=== PATIENT | male | born 1955 | race Caucasian/White ===

== ENCOUNTER 2018-03-28 07:15 | Outpatient (RCR) | payer OTHER, SELFPAY ==
--- NOTE | 2017-10-21 09:07 | MASS.EVAL ---
Massage Therapy Evaluation: Initial Evaluation Date: 10/11/2017 SUBJECTIVE: Nishant is a 62 year old male who is retired. He was referred to the [facility] facility for a massotherapy evaluation by Dr. Guille Padilla with the diagnosis of low back pain. Nishant presents today with the symptoms of tension and pain in his neck, upper back and lower back. He reports having a medical history spinal problems. He reports having minimal limitations during his daily activities currently. OBJECTIVE: Upon observation Nishant has poor posture with his head forward and shoulders forward from the neutral position in sitting and standing. After examination and palpation I found Nishant to have very high muscle tension in his scalenes, trapezius, rhomboids, and sub occipitals with restrictions in cervical ROM. His thoracic and lumbar paraspinals were tender with muscle knots. His hips and lumbar region were also very tight with tender points. The first treatment consisted of a one hour massage to his full body with myofascial release, muscle stripping and compression techniques. ASSESSMENT: I feel that Nishant is a good candidate for massotherapy at this time. He had a favorable response to the first treatment with reduction in his muscle aches, pain and tension. He also had improvement in his cervical and lumbar range of motion with improved flexibility in his neck and back. PLAN: The plan of care was reviewed with the patient. The patient is to be seen on as needed basis for a total of ten sessions with the recommendation of once every four weeks for a one hour treatment.
--- NOTE | 2018-03-28 12:42 | MASS.DISCH ---
Massage Therapy Discharge Summary: Discharge Date: 03/28/2018 Nishant was seen for a massotherapy evaluation on 10/11/2017 with the diagnosis of low back pain. He was treated with ten sessions of massage consisting of deep pressure soft tissue techniques, myofascial release and trigger point compression to his neck, shoulders, thoracic, lower back and hips. Nishant responded well to the therapy by reporting decreased tension and pain throughout his neck, lower back and hips. His goals for therapy were met throughout the treatment sessions. At this time this patient is being discharged from our care at [facility] facility.
== END 2018-03-28 19:00 | disposition home or self-care (01) ==
LOC: MASS 07:15
PROVIDERS: Family Provider Student in an Organized Health Care Education/Training Program; PCP Student in an Organized Health Care Education/Training Program; Visit Provider Student in an Organized Health Care Education/Training Program
DX: M54.5 Low back pain (principal)
CPT/HCPCS: 97124

== ENCOUNTER → 2018-09-23 11:33 | Outpatient (CLI) | payer OTHER, SELFPAY ==
[2018-09-23 15:43] LABS: Absolute Lymphocyte Count 1.68 X10^3/ul (0.83-4.51); Absolute Neutrophil Count 3.6 X10^3/uL (2.0-7.7); Basophil# 0.02 X10^3/uL; Basophil% 0.3 % (0-1); Eosinophils% 1.6 % (0-5); Hematocrit 53.1 % (40-54); Hemoglobin 17.6 g/dl (13.0-16.5); Lymphocyte # 1.68 X10^3/ul (4.0); Lymphocyte % 27.6 % (19-41); Mean Corp Hgb Conc 33.1 g/gl (32-36); Mean Corpuscular Volume 93.7 fL (80-94); Mean Platelet Vol. 9.6 fl (6.2-12.0); Monocyte% 11.5 % (0-10); Neutrophil # 3.58 X10^3/uL (2.7-7.7); Neutrophil % 58.8 % (47-70); Platelet Count 242 K/mm3 (150-450); RBC Distribution Width SD 47.6 fl (35.1-43.9); Red Blood Count 5.67 M/mm3 (4.6-6.2); White Blood Count 6.1 K/mm3 (4.4-11.0)
[2018-09-23 15:49] LABS: POSITIVE COUNT NO; POSITIVE DIFFERENTIAL NO; POSITIVE MORPHOLOGY NO
[2018-09-23 16:05] LABS: ALB/GLOB Ratio 1.4 RATIO (0.9-2.4); AST(SGOT) 25 U/L (15-37); Alanine Aminotransfer ALT/SGPT 43 U/L (16-61); Albumin, Serum 4.3 g/dL (3.2-5.0); Alkaline Phosphatase 70 U/L (45-117); Anion Gap 9 (5-15); BUN 15 mg/dL (7-18); BUN/Creat Ratio 13.6 RATIO (10-20); Calcium,Total 9.2 mg/dL (8.5-10.1); Chloride 105 mmol/L (98-107); EST Glomerular Filtration Rate 72 mL/min (>60); Est Glom Filt Rate - Afr Amer 87 mL/min (>60); Globulin 3.1 g/dL (2.2-4.2); Glucose 90 mg/dL (74-106); PSA,Total- Diagnostic < 0.01 ng/mL (0.0-4.0); Potassium 4.1 mmol/L (3.5-5.1); Protein, Total 7.4 g/dL (6.4-8.2); Sodium Level 142 mmol/L (136-145); Thyroid Stim Hormone (TSH) 1.82 uIU/mL (0.358-3.74)
== END ==
PROVIDERS: Family Provider Family Medicine; PCP Family Medicine; Visit Provider Family Medicine
DX: R73.01 Impaired fasting glucose (principal); R03.0 Elevated blood-pressure reading, without diagnosis of hypertension
CPT/HCPCS: 36415; 80053; 84153; 84443; 85025

== ENCOUNTER → 2018-11-16 12:16 | Outpatient (CLI) | payer OTHER, SELFPAY ==
--- NOTE | 2018-11-16 07:30 | LES_PTH ---
PATIENT: TELLY HARO LOC: [facility] U#:[id number] AGE/SX: 70/M ROOM: RE11/16/[address]: Dr. Damon Hahn MD : 1955 BED: DIS: SPEC #: [id number] RECD: 11/16/18 12:03 STATUS: RANDALL GEOVANNY #: [id number] STEPHEN: 11/16/18 07:[address]: Damon Hahn DEPT: SURGICAL PATHOLOGY RECD BY: Jayme Delgado ENTERED: 11/16/18 13:23 SP TYPE: Lesion OTHR DR: Dr. Narinder Grider MD Tissues: Skin of head, NOS Procedures: Surgery Specimen Level IV HEADER OPERATION: Excision left baptist lesion PRE-OP DIAGNOSIS: Uncertain neoplasm face TISSUE SUBMITTED: Left baptist lesion MICROSCOPIC DIAGNOSIS Skin lesion of left baptist, biopsy: Consistent with sebaceous hyperplasia. Actinic change and solar elastosis. Focal parakeratosis. No evidence of malignancy. AM:rg 2/14/19 COMMENT Case has been reviewed in consultation with Dr. Lopez who concurs with the above diagnosis. IDC:SJ MICROSCOPIC DESCRIPTION Slides are reviewed. GROSS DESCRIPTION Received in fixative is one container labeled with the patient's name and designated left baptist. The specimen consists of an ellipse of light costa excised skin measuring 1.2 x 0.6 x 0.2 cm. The specimen is inked, serially sectioned and totally submitted in one cassette. / AM:federico 11/16/18 TC:5 CPT: 41679
== END ==
PROVIDERS: Family Provider Family Medicine; PCP Family Medicine; Referring Provider Surgery; Visit Provider Surgery
DX: L57.8 Other skin changes due to chronic exposure to nonionizing radiation (principal); W89.9XXA Exposure to unspecified man-made visible and ultraviolet light, initial encounter; Y93.9 Activity, unspecified; Y92.9 Unspecified place or not applicable; Y99.9 Unspecified external cause status; R23.4 Changes in skin texture
CPT/HCPCS: 88305

== ENCOUNTER → 2019-03-26 15:25 | Outpatient (CLI) | payer OTHER, SELFPAY ==
--- NOTE | 2019-03-26 15:33 | RAD_ITS ---
STUDY: X-RAY - RIGHT FOOT CLINICAL: Male, 63 years old. Trauma TECHNIQUE: 3 view(s) of the foot. COMPARISON: None. FINDINGS: There is a tiny plantar aspect calcaneal spur. Normal visualized subtalar, talonavicular, calcaneocuboid, tarsal and tarsometatarsal articulations. There is a slightly displaced oblique fracture of the base of the fourth metatarsal, and possibly also the base of the third metatarsal. Normal metatarsophalangeal joint of the great toe. Normal tibial and fibular sesamoid bones. Normal interphalangeal joint of the great toe. Normal phalanges of the great toe. Normal second through fifth metatarsophalangeal joints. Normal interphalangeal joints and phalanges of the lesser toes. There is soft tissue swelling of the dorsum of the distal foot. RAD/Foot min 3 Views IMPRESSION: Slightly displaced oblique fracture the base of the fourth metatarsal. There is also a possible nondisplaced fracture of the base of the third metatarsal. Tiny plantar aspect calcaneal spur. Electronically Signed: Jignesh Gibson MD at 19:54 EDT , Service support ,
== END ==
PROVIDERS: Family Provider Family Medicine; PCP Family Medicine; Referring Provider Family Medicine; Visit Provider Family Medicine
DX: M79.671 Pain in right foot (principal)
CPT/HCPCS: 73630

== ENCOUNTER → 2019-03-28 15:19 | Outpatient (CLI) | payer OTHER, SELFPAY ==
--- NOTE | 2019-03-28 15:21 | CT_ITS ---
STUDY: CT RIGHT FOOT REASON FOR EXAM: Male, 63 years old. Fracture status post density accident RADIATION DOSAGE (If Supplied By Facility): CTDIvol = ( 15.35 ) mGy, DLP = ( 369.11 ) mGycm TECHNIQUE: Thin section transaxial imaging of the foot was obtained, with sagittal and coronal reconstructed images. Individualized dose optimization techniques were used for this CT. COMPARISON: None. FINDINGS: Normal talus, calcaneus,. Normal visualized tibiotalar, subtalar, talonavicular, calcaneocuboid, tarsal and tarsometatarsal articulations. There is a comminuted fracture at the base of the fourth metatarsal. There is a fracture fragment at the base of the third metatarsal on the medial side. There is a focus of fracture fragments on the medial side of the medial cuneiform. There is a small focus of fracture fragments at the anterior aspect of the cuboid with a visualized fracture of the cuboid images were 14 of the sagittal views. There is also a subtle fracture or avulsion injury in the superior side of the navicular bone image #28 of the sagittal views. There is an os trigonum. The bones are overall osteopenic likely from disuse. The visualized calcaneus is intact. Normal metatarsophalangeal joint of the great toe. Normal tibial and fibular sesamoid bones. Normal interphalangeal joint of the great toe. Normal phalanges of the great toe. Normal second through fifth metatarsophalangeal joints. Normal interphalangeal joints and phalanges of the lesser toes. There is visualized soft tissue edema. CT/Coronals Sag Multi Obl 3-D Rec IMPRESSION: There is a comminuted fracture at the base of the fourth metatarsal. There is a fracture fragment at the base of the third metatarsal on the medial side. There is a focus of fracture fragments on the medial side of the medial cuneiform. There is a small focus of fracture fragments at the anterior aspect of the cuboid with a visualized fracture of the cuboid images were 14 of the sagittal views. There is also a subtle fracture or avulsion injury in the superior side of the navicular bone image #28 of the sagittal views. An MRI may be helpful in further establishing any subtle areas of bone edema or soft tissue injury. Electronically Signed: Amber Jett MD at 16:25 EDT Tel , Service support ,
--- NOTE | 2019-03-28 15:21 | CT_ITS ---
STUDY: CT RIGHT FOOT REASON FOR EXAM: Male, 63 years old. Fracture status post density accident RADIATION DOSAGE (If Supplied By Facility): CTDIvol = ( 15.35 ) mGy, DLP = ( 369.11 ) mGycm TECHNIQUE: Thin section transaxial imaging of the foot was obtained, with sagittal and coronal reconstructed images. Individualized dose optimization techniques were used for this CT. COMPARISON: None. FINDINGS: Normal talus, calcaneus,. Normal visualized tibiotalar, subtalar, talonavicular, calcaneocuboid, tarsal and tarsometatarsal articulations. There is a comminuted fracture at the base of the fourth metatarsal. There is a fracture fragment at the base of the third metatarsal on the medial side. There is a focus of fracture fragments on the medial side of the medial cuneiform. There is a small focus of fracture fragments at the anterior aspect of the cuboid with a visualized fracture of the cuboid images were 14 of the sagittal views. There is also a subtle fracture or avulsion injury in the superior side of the navicular bone image #28 of the sagittal views. There is an os trigonum. The bones are overall osteopenic likely from disuse. The visualized calcaneus is intact. Normal metatarsophalangeal joint of the great toe. Normal tibial and fibular sesamoid bones. Normal interphalangeal joint of the great toe. Normal phalanges of the great toe. Normal second through fifth metatarsophalangeal joints. Normal interphalangeal joints and phalanges of the lesser toes. There is visualized soft tissue edema. CT/Extremity Lower without Contra IMPRESSION: There is a comminuted fracture at the base of the fourth metatarsal. There is a fracture fragment at the base of the third metatarsal on the medial side. There is a focus of fracture fragments on the medial side of the medial cuneiform. There is a small focus of fracture fragments at the anterior aspect of the cuboid with a visualized fracture of the cuboid images were 14 of the sagittal views. There is also a subtle fracture or avulsion injury in the superior side of the navicular bone image #28 of the sagittal views. An MRI may be helpful in further establishing any subtle areas of bone edema or soft tissue injury. Electronically Signed: Amber Jett MD at 16:25 EDT Tel , Service support ,
== END ==
PROVIDERS: Family Provider Family Medicine; PCP Family Medicine
DX: S92.901A Unspecified fracture of right foot, initial encounter for closed fracture (principal); X58.XXXA Exposure to other specified factors, initial encounter; Y93.9 Activity, unspecified; Y92.9 Unspecified place or not applicable; Y99.9 Unspecified external cause status
CPT/HCPCS: 73700; 76377

== ENCOUNTER → 2019-04-24 08:22 | Outpatient (CLI) | payer OTHER, SELFPAY ==
[2019-04-19 08:45] VITALS: BMI 25.7
--- NOTE | 2019-04-24 08:26 | RAD_ITS ---
STUDY: X-RAY - RIGHT FOOT CLINICAL: Male, 63 years old. Pain TECHNIQUE: 3 view(s) of the foot. COMPARISON: None. 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 Stable plantar scar. Previously described fracture in the base of the fourth metatarsal has nearly healed. Continued follow-up recommended to assure complete osseous union. Joint spaces well-preserved. 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 Reflex sympathetic dystrophy can also have a similar radiographic appearance. Partial but not yet complete healing of a previously described fracture at the base of the fourth metatarsal Calcaneal spurs Electronically Signed: Sonu Rodriguez MD at 9:21 EDT , Service support ,
== END ==
PROVIDERS: Family Provider Family Medicine; PCP Family Medicine
DX: S93.324A Dislocation of tarsometatarsal joint of right foot, initial encounter (principal); X58.XXXA Exposure to other specified factors, initial encounter; Y93.9 Activity, unspecified; Y92.9 Unspecified place or not applicable; Y99.9 Unspecified external cause status
CPT/HCPCS: 73630

== ENCOUNTER → 2019-06-02 07:30 | Outpatient (CLI) | payer OTHER, SELFPAY ==
[2019-04-19 08:45] VITALS: BMI 25.7
--- NOTE | 2019-06-02 07:34 | RAD_ITS ---
STUDY: X-RAY - RIGHT FOOT CLINICAL: Male, 63 years old. History of a Lisfranc fracture. TECHNIQUE: 3 view(s) of the foot. COMPARISON: Comparison is made with prior examination dated April 24, 2019. FINDINGS: There is demineralization of the rear and midfoot bones. Small plantar spur. Talar beak. Normal visualized subtalar, talonavicular, calcaneocuboid, tarsal and tarsometatarsal articulations. There is demineralization of the metatarsi. Healed fracture at the base of the fourth metatarsal. Normal metatarsophalangeal joint of the great toe. Normal tibial and fibular sesamoid bones. Normal interphalangeal joint of the great toe. Normal phalanges of the great toe. Normal second through fifth metatarsophalangeal joints. Normal interphalangeal joints and phalanges of the lesser toes. There is no demonstrated soft tissue swelling. RAD/Foot min 3 Views IMPRESSION: Diffuse demineralization of the bony structures. The fracture of the base of the fourth metatarsal is healed. Electronically Signed: Aamir Quevedo, at 9:34 EDT , Service support ,
== END ==
PROVIDERS: Family Provider Family Medicine; PCP Family Medicine; Referring Provider Family Medicine; Visit Provider Family Medicine
DX: S92.901A Unspecified fracture of right foot, initial encounter for closed fracture (principal); X58.XXXA Exposure to other specified factors, initial encounter; Y93.9 Activity, unspecified; Y92.9 Unspecified place or not applicable; Y99.9 Unspecified external cause status
CPT/HCPCS: 73630

== ENCOUNTER 2019-08-02 07:00 | Outpatient (RCR) | payer OTHER, MEDICARE, SELFPAY ==
--- NOTE | 2018-12-13 13:43 | MASS.EVAL ---
Massage Therapy Evaluation: Initial Evaluation Date: 12/12/2018 SUBJECTIVE: Nishant is a 63 year old male who was referred to the [facility] facility for a massotherapy evaluation by Dr. Narinder Grider with the diagnosis of chronic back pain. Nishant presents today with the symptoms of tension and pain in his neck, mid back and low back. Nishant reports having a past medical history arthritis, spinal problems and chronic pain. He reports having moderate improvement with exercise and stretching. OBJECTIVE: Upon observation Nishant has some posture issues with his head and shoulders forward from the neutral position in sitting and standing. After examination and palpation I found Nishant to have high muscle tension with tenderness and myofascial restrictions in his sub occipitals, levator scapulae, trapezius, rhomboids, scalenes, and thoracic paraspinals. His QL?s, lumbar paraspinals, piriformis, glute medius and minimus all were very tight with fascial restrictions, tender points and trigger points. The first treatment consisted of a one hour massage to his full body with myofascial release, muscle stripping, trigger point compression techniques, and cervical manual traction. ASSESSMENT: I feel that Nishant is a good candidate for massotherapy at this time. He had a favorable response to the first treatment with reduction in his muscle aches, pain and tension. He also had improvement in his cervical flexibility and low back flexibility. PLAN: The plan of care was reviewed with the patient. The patient is to be seen on an as needed basis for a total of ten sessions with the recommendation of once every month for a one hour treatment.
--- NOTE | 2019-08-02 16:12 | DS.PCM_ITS ---
Massage Therapy Discharge Summary: Discharge Date: 08/02/2019 Nishant was seen for a massotherapy evaluation on 12/12/2018 with the diagnosis of chronic back pain. He was treated with ten sessions of massage therapy consisting of deep pressure soft tissue techniques, myofascial release and trigger point compression to his cervical, thoracic, lower back, upper extremities, hips and lower extremities. Nishant responded well to the therapy by reporting decreased tension and pain throughout his head, neck, shoulders, lower back and hips. His goals for therapy were met throughout the treatment sessions. At this time this patient is being discharged from our care at [facility] facility.
== END 2019-08-02 19:00 | disposition home or self-care (01) ==
LOC: MASS 07:00
PROVIDERS: Family Provider Family Medicine; PCP Family Medicine; Referring Provider Family Medicine; Visit Provider Family Medicine
DX: M54.9 Dorsalgia, unspecified (principal); G89.29 Other chronic pain
CPT/HCPCS: 97124

== ENCOUNTER → 2019-08-17 15:55 | Outpatient (CLI) | payer OTHER, MEDICARE, SELFPAY ==
[2019-04-19 08:45] VITALS: BMI 25.7
--- NOTE | 2019-08-17 16:00 | RAD_ITS ---
STUDY: X-RAY - LEFT FEMUR REASON FOR STUDY: Male, 64 years old. No evidence tendon suggesting distal femoral pain. No known injury. History of prostate cancer. TECHNIQUE: 5 view(s) of the femur. COMPARISON: None. FINDINGS: Normal visualized femur. There is no fracture or dislocation. There is no evidence of sclerotic or lytic lesion. There is no cortical disruption or periosteal reaction. The hip and knee appear grossly normal. Normal visualized soft tissue structure. RAD/Femur Min 2 Views IMPRESSION: Normal x-ray examination of the femur. Electronically Signed: Cecil Olmedo DO at 16:25 EST Tel [phone], Service support ,
== END ==
PROVIDERS: Family Provider Family Medicine; PCP Family Medicine; Referring Provider Family Medicine; Visit Provider Family Medicine
DX: M89.8X5 Other specified disorders of bone, thigh (principal)
CPT/HCPCS: 73552

== ENCOUNTER → 2019-09-22 11:40 | Outpatient (CLI) | payer OTHER, MEDICARE, SELFPAY ==
[2019-04-19 08:45] VITALS: BMI 25.7
--- NOTE | 2019-09-22 11:45 | RAD_ITS ---
STUDY: X-RAY - RIGHT FOOT CLINICAL: Male, 64 years old. LIS FRANC 6 MONTHS AGO, F/U TECHNIQUE: 3 view(s) of the foot. COMPARISON: Prior exam of June 02, 2019. FINDINGS: Normal talus, calcaneus, and tarsal bones. Normal visualized subtalar, talonavicular, calcaneocuboid, tarsal and tarsometatarsal articulations. Stable widening of the space between the base of the first and second metatarsals. Stable cuneiform and cuboid alignment. Healed fracture at the base of the fourth metacarpal. There is degenerative arthrosis of the metatarsophalangeal joint of the hallux . Normal tibial and fibular sesamoid bones. Normal interphalangeal joint of the great toe. Normal phalanges of the great toe. Normal second through fifth metatarsophalangeal joints. Degenerative changes at the fifth metatarsophalangeal joint. Mild degenerative changes of the interphalangeal joints. The demineralized osseous structures presumably secondary to disuse. RAD/Foot min 3 Views IMPRESSION: Healing Lisfranc''s injury with no further change in alignment. Normal cuneiform and cuboid alignment. Healing fracture of the base of the fourth metatarsal. If there were associated other metatarsal or cuneiform fractures, they aren''t healing in normal alignment. Electronically Signed: Brittny Interiano MD at 22:19 EST , Service support ,
== END ==
PROVIDERS: Family Provider Family Medicine; PCP Family Medicine
DX: S92.341A Displaced fracture of fourth metatarsal bone, right foot, initial encounter for closed fracture (principal)
CPT/HCPCS: 73630

== ENCOUNTER 2020-06-19 07:00 | Outpatient (RCR) | payer OTHER, MEDICARE, SELFPAY ==
[2019-04-19 08:45] VITALS: BMI 25.7
--- NOTE | 2019-10-25 14:59 | MASS.EVAL ---
Massage Therapy Evaluation: Initial Evaluation Date: 10/25/2019 SUBJECTIVE: Nishant is a 64 year old male who was referred to the [facility] facility for a massotherapy evaluation by Dr. Isabel with the diagnosis of low back pain and back ache. Nishant presents today with the symptoms of pain and swelling in his right ankle and foot. He also complains of tension and pain in his neck, low back and hips. Nishant reports that he has a past medical history of chronic pain. He reports having some improvement with exercise and stretching. OBJECTIVE: Upon observation Nishant has some posture issues with his head and shoulders forward from the neutral position in sitting and standing. After examination and palpation I found Nishant to have high muscle tension with tenderness and myofascial restrictions in his sub occipitals, levator scapulae, trapezius, rhomboids, scalenes, and thoracic paraspinals. His QL?s, lumbar paraspinals, piriformis, glute medius, glute minimus, quads, hamstrings and calves all had high tension with fascial restrictions and tender points. The first treatment consisted of a one hour massage to his legs, hips, back and neck with myofascial release, muscle stripping, trigger point compression techniques. ASSESSMENT: I feel that Nishant is a good candidate for massotherapy at this time. He had a favorable response to the first treatment with reduction in his muscle aches, pain and tension. He also had improvement in his cervical flexibility and low back flexibility. PLAN: The plan of care was reviewed with the patient. The patient is to be seen on an as needed basis for a total of ten sessions with the recommendation of once every month for a one hour treatment.
== END 2020-06-19 19:00 | disposition home or self-care (01) ==
LOC: MASS 07:00
PROVIDERS: PCP Family Medicine; Referring Provider Family Medicine; Visit Provider Family Medicine
DX: M54.5 Low back pain (principal)
CPT/HCPCS: 97124

== ENCOUNTER → 2020-10-07 16:47 | Outpatient (CLI) | payer MEDICARE, OTHER, SELFPAY ==
[2019-04-19 08:45] VITALS: BMI 25.7
[2020-10-07 17:10] LABS: CREATININE FINGERSTICK 1.4 mg/dL (0.70-1.30)
--- NOTE | 2020-10-07 17:10 | CT_ITS ---
STUDY: CT CHEST WITH CONTRAST REASON FOR EXAM: Male, 65 years old. SUPRACLAVICULAR MASS. HX OF PROSTATE CA RADIATION DOSAGE (If Supplied By Facility): CTDIvol = ( 13.46 ) mGy, DLP = ( 454.13 ) mGycm TECHNIQUE: Transaxial imaging was performed following intravenous administration of IV 100mL Isovue-300. Individualized dose optimization techniques were used for this CT. COMPARISON: None. FINDINGS: The lungs are normal. There is no demonstrated pleural abnormality. Normal heart and pericardium. Normal mediastinum. Normal hilar regions. Normal enhanced pulmonary arteries. Normal aorta arch and descending thoracic aorta. Normal osseous structures. There is no demonstrated abnormality of the visualized upper abdomen. CT/Chest WITH Contrast IMPRESSION: Normal enhanced CT Chest examination. No evidence of supraclavicular mass. Electronically Signed: Klever Hickman MD at 18:47 EST , Service support ,
== END ==
PROVIDERS: PCP Family Medicine; Referring Provider Surgery; Visit Provider Surgery
DX: R22.2 Localized swelling, mass and lump, trunk (principal)
CPT/HCPCS: 71260; Q9967

== ENCOUNTER → 2023-01-06 | Outpatient (CLI) | payer MEDICARE, OTHER, SELFPAY ==
[2023-01-06 08:29] LABS: Bacteria 0 SEEN /hpf (None Seen); Mucous, Urine 0 SEEN /hpf (<or=2+); Red Blood Cells-Urine 0 SEEN /hpf (0-5); Squamous Epithelial Cells - UA 0 SEEN /hpf (0-5); White Blood Cells 0 SEEN /hpf (0-5)
[2023-01-06 10:27] LABS: Absolute Lymphocyte Count 1.26 X10^3/uL (0.83-4.51); Absolute Neutrophil Count 3.3 X10^3/uL (2.0-7.7); Basophil# 0.03 X10^3/uL; Basophil% 0.6 % (0-1); Eosinophil# 0.05 X10^3/uL; Eosinophils% 0.9 % (0-5); Hematocrit 49.6 % (40-54); Lymphocyte # 1.26 X10^3/ul (0.83-4.51); Lymphocyte % 23.8 % (19-41); Mean Corp Hgb Conc 34.3 g/dL (32-36); Mean Corpuscular Hgb 32.2 pg (27.0-32.0); Mean Corpuscular Volume 93.9 fL (80-94); Monocyte# 0.65 X10^3/uL; Monocyte% 12.3 % (0-10); NRBC Flagged by Analyzer 0 % (0-5); Neutrophil # 3.28 X10^3/uL (2.7-7.7); Platelet Count 264 K/mm3 (150-450); RBC Distribution Width CV 13.3 % (11.6-14.6); RBC Distribution Width SD 46.1 fl (35.1-43.9); Red Blood Count 5.28 M/mm3 (4.6-6.2); White Blood Count 5.3 K/mm3 (4.4-11.0)
[2023-01-06 10:30] LABS: Color, Urine Yellow (Yellow); Glucose, Dipstick Normal (Normal); Ketone-Dipstick Negative (Negative); Leukocyte Esterase-Dipstick Negative /ul (Negative); Nitrite-Dipstick Negative (Negative); Occult Blood-Urine 10 /ul (Negative); Protein-Dipstick Negative (Negative); Urine Bilirubin Dipstick Negative (Negative); Urine Clarity Clear (Clear); Urine Urobilinogen Normal (Normal); Urine pH 6.5 (5.0 - 8.0)
[2023-01-06 10:47] LABS: Hemoglobin A1c 5.3 % (3.8-5.6)
[2023-01-06 10:49] LABS: ALB/GLOB Ratio 1.3 RATIO (0.9-2.4); AST(SGOT) 26 U/L (15-37); Alanine Aminotransfer ALT/SGPT 38 U/L (16-61); Albumin, Serum 3.9 g/dL (3.2-5.0); Alkaline Phosphatase 58 U/L (45-117); Anion Gap 12 (5-15); BUN 13 mg/dL (7-18); BUN/Creat Ratio 16.4 RATIO (10-20); Calcium,Total 9.2 mg/dL (8.5-10.1); Chloride 104 mmol/L (98-107); Cholesterol 155 mg/dL (200); EST Glomerular Filtration Rate 103 mL/min (>60); Est Glom Filt Rate - Afr Amer 124 mL/min (>60); Globulin 3.1 g/dL (2.2-4.2); Glucose 110 mg/dL (74-106); High Density Lipoprotein 47 mg/dL; PSA,Total- Diagnostic < 0.01 ng/mL (0.0-4.0); Potassium 3.8 mmol/L (3.5-5.1); Sodium Level 137 mmol/L (136-145); Thyroid Stim Hormone (TSH) 1.96 uIU/mL (0.358-3.74); Triglycerides 64 mg/dL; Very Low Density Lipoprotein 13 mg/dL (5-40)
[2023-01-08 15:56] LABS: Ferritin 187 ng/mL (26-388); Iron 125 ug/dL (65-175); Iron Binding Capacity,Total 358 ug/dL (250-450); PERCENT IRON SATURATION 34.9 % (15.0-55.0)
[2023-01-10 11:21] LABS: Transferrin 282 mg/dL (177-329)
== END | disposition home or self-care (01) ==
LOC: MFPLAB 08:27
PROVIDERS: PCP Family Medicine; Referring Provider Family Medicine; Visit Provider Family Medicine
DX: R71.8 Other abnormality of red blood cells (principal); I10 Essential (primary) hypertension; R73.02 Impaired glucose tolerance (oral); Z85.46 Personal history of malignant neoplasm of prostate
CPT/HCPCS: 36415; 80053; 80061; 81001; 82728; 83036; 83540; 83550; 84153; 84443; 84466; 85025

== ENCOUNTER 2023-02-01 06:57 | Day surgery (SDC) | payer MEDICARE, OTHER, SELFPAY ==
[2023-02-01] VITALS (7 sets, daily range): BP systolic 134–161; BP diastolic 76–83; PULSE 73–86; RESP 16; TEMP 36.7; O2SAT 94–97; BMI 25.2
--- NOTE | 2023-02-01 | VOCOB_PTH ---
PATIENT: TELLY HARO LOC: [facility] U#:[id number] AGE/SX: 67/M ROOM: RE02/01/[address]: Dr. Fredrick Loo MD : 1955 BED: DIS: 02/01/2023 SPEC #: [id number] RECD: 02/01/23 13:07 STATUS: RANDALL SMALL #: [id number] STEPHEN: 02/01/23 00:[address]: Fredrick Loo DEPT: SURGICAL PATHOLOGY RECD BY: Soren Macdonald ENTERED: 02/01/23 13:07 SP TYPE: VOCAL CORD OTHR DR: Dr. Lamine Escalante MD Tissues: Vocal cord, NOS Procedures: Surgery Specimen Level IV HEADER OPERATION: Microdirect laryngoscopy with excision biopsy vocal cord mass PRE-OP DIAGNOSIS: Hoarseness, neoplasm TISSUE SUBMITTED: Left vocal cord mass MICROSCOPIC DIAGNOSIS Left vocal cord mass, excision: Fragments of squamous mucosa with ulceration, acute and chronic inflammation and granulation tissue reaction. Negative for malignancy. See comment. ELVA:federico 02/02/2023 COMMENT A minute Fragment of hyaline cartilage is also noted in the deeper portion of the specimen. Clinical correlation and appropriate follow-up are necessary. Case has been reviewed in consultation with Dr. Hancock who concurs with the above diagnosis. IDC:AM MICROSCOPIC DESCRIPTION Slides are reviewed. GROSS DESCRIPTION Received in fixative is one container labeled with the patient's name and designated left vocal cord mass. The specimen consists of two pieces of pink, congested soft tissue that in aggregate measure 1.5 x 0.5 x 0.3 cm. The specimen is totally submitted in one cassette. / ELVA:federico 02/01/2023 TC:5 CPT: 43540
[2023-02-01] MEDS: Lactated Ringers 1,000 ML 15 ML IV (07:40)
--- NOTE | 2023-02-01 08:37 | PCM.DC.SUM ---
Providers Primary Care Physician: Dr. Lamine Escalante MD Reason For Visit: MICRO DIRECT LARYNGOSCOPY WITH EXCISION BX LT VOCA Medications at Discharge Home Medications amlodipine 5 mg tablet (Norvasc) 10 mg PO DAILY 11/21/18 Weight / BMI Weight Weight: 84.5 kg Body Mass Index (BMI) 25.2 D/C Instructions Discharge Diet: Soft diet Discharge Activity: Return to Normal Activity Please Follow Up With: Fredrick Loo MD When: 10 days Meaningful Use Info Meaningful Use Diagnoses (Choose all that apply): None applicable Discharge Plan Admission Attending Provider: Fredrick Loo Primary Care Provider: Lamine Escalante Discharge Orders/Prescriptions Prescriptions: No Action amlodipine [Norvasc] 5 mg tablet 10 mg PO DAILY Referrals / Follow Up: Lamine Escalante MD [Primary Care Provider] - Disposition Disposition (needs filled in before D/C Order can be placed): Home, Self Care
--- NOTE | 2023-02-01 08:42 | OP.PCM_ITS ---
Report of Operation Date of Procedure: 02/01/23 Pre-Operative Diagnosis: vocal cord polyp Post-Operative Diagnosis: same Surgery/Procedure Performed:: microdirect laryngoscopy with excision left vocal cord polyp Description of Surgical Findings:: Surgeon: Fredrick Loo Type of Anesthesia: General Anesthesiologist: Michi Alves Estimated Blood Loss (mL): minimal Description of Procedure: The patient was taken to the operating room on 02/01/2023. He was placed in the supine position on the operating room table. He was given sufficient general endotracheal anesthesia. The table was turned 90 degrees in a clockwise fashion. The patient was draped sterilely. A Dedo laryngoscope was inserted into the patient's mouth and the oropharynx was exposed. Multiple laryngoscope's were to used, the best visualization was the Dedo laryngoscope. The hypopharynx was examined. No abnormalities were seen. Next the larynx was exposed. The patient was then placed in [place] suspension on the [place] stand. The operating microscope was used at this point. The polyp was grasped with cup forceps. It appeared to be originating from the posterior left vocal cord. Scissors were used to excise the polyp at its base. Hemostasis was then achieved topically with adrenaline on Codman's. The Codman's were then removed. Hemostasis was achieved and the instrumentation was removed. The patient was then awoken and brought to the recovery room in stable condition. Blood loss minimal, replacement none. Sponge, needle, and instrument count were correct at the end of the procedure.
[2023-02-01] MEDS: Epinephrine (1 mg/ml) 1 MG/ML VIAL (09:20)
== END 2023-02-01 11:19 | disposition home or self-care (01) ==
LOC: SDC 06:59 → AC 07:00
PROVIDERS: PCP Family Medicine; Referring Provider Otolaryngology; Visit Provider Otolaryngology
PROC: 0CJS8ZZ Inspection of Larynx, Via Natural or Artificial Opening Endoscopic (ICD-10-PCS; CPT 31575; principal; 2023-02-01 08:30)
DX: J38.1 Polyp of vocal cord and larynx (principal); R49.0 Dysphonia; I10 Essential (primary) hypertension; Z79.899 Other long term (current) drug therapy; Z85.46 Personal history of malignant neoplasm of prostate
CPT/HCPCS: 31541; 00320; 88305; 93005; J7120; J2405

== ENCOUNTER 2023-08-31 14:00 | Outpatient (RCR) | payer MEDICARE, OTHER, SELFPAY ==
--- NOTE | 2023-03-15 16:38 | HP.PTEVAL ---
Patient's Visit Information TELLY JUSTIN is a 67 year old M referred to Physical Therapy by Out of Town Doctor with a diagnosis of R bicep and Supraspinatus RCT. 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 Nhan states that he has had long standing right shoulder pain for at least 18 months. He said he was splitting wood then threw a rock at a [place] cat and began to experience right sides shoulder pain. He is scheduled to go on vacation for the next two weeks. - Pain Right Shoulder Pain Intensity (Out of 10): 0 Pain Intensity Range: 1, 8 - Objective 170 FF bilaterally, ext rotation 60 B. Some crepitus noted over ac joint with PROM. This right hand dominant individual displayed a transport assistant strength of 60 right 70 left. MMT of R shoulder is 33 int rot 17 ext with pain, L is 38/25 respectively. Some tenderness in bicipital groove - Balance/Special Test Scores Quick DASH Score: 32.5000 - Goals Goal 1:: Return demo HEP mid row w, purple band, shd flexion 90-0 shd abduction 90-9, ext rot only 2x20 twice daily. Goal Time Frame: 2 Weeks Goal 2:: Improve ext rotation MMT 10% in 2-4 weeks Goal Time Frame: 2-4 Weeks Goal 3:: Scapular strengthening Goal Time Frame: 2-4 Weeks - Rehabilitation Potential Physical Therapy Diagnosis: Same Rehabilitation Potential: Good - Anticipated Interventions Patient/Client Instruction: Educate patient on: Condition, Plan of Care For the Purpose of:: To decrease pain, To decrease swelling/inflammation, To increase ROM, To increase flexibility/ROM Therapeutic Exercise to Include: Strength training, Coordination, Flexibilty training For the Purpose of:: To decrease pain, To decrease swelling/inflammation, To increase ROM, To increase flexibility/ROM Manual Therapy Techniques to Include: Mobilization, Passive ROM For the Purpose of:: To decrease pain, To decrease swelling/inflammation, To increase ROM, To increase flexibility/ROM Ultrasound (thermal/non thermal): Yes For the Purpose of:: To decrease pain, To decrease swelling/inflammation, To improve nutrient delivery to tissue, To increase flexibility/ROM Thank you for the opportunity to evaluate your patient. For Medicare and Medicare HMO plans, please review the plan of care and approve it. It will need to be FAXED BACK to us at [phone] for Medicare purposes. For Medicare only, by signing this I certify the plan of care. Please let me know if there are questions or concerns regarding this plan of care. Physician Signature: Date:
--- NOTE | 2023-08-31 14:54 | HP.PTDCSUM_ITS ---
Discharge Summary D/C summary: It has been my pleasure to treat TELLY HARO referred by ANGEL MACK, with the diagnosis of R bicep and Supraspinatus RCT for a total of 15 visit(s). Discharge Date: 08/31/23 Please see the following information for a summary of their discharge status. Subjective Subjective: Nhan returns to the clinic after a month long trip to [facility]. Prior to leaving he felt about 80-85% better but has since regressed a little to about 70%. Its now affecting my adls such as raking blowing leaves or lifting a suitcase. I'm going to call the Dr to schedule a visit to see if I'm a surgical candidate. Pain Right Shoulder: Pain Intensity (Out of 10): 0 Heal: Pain Intensity (Out of 10): 0 Overall Improvement % Improvement: 85 Objective Objective/Function: Mild tenderness over bicipital groove ext. rotation R 32/49 L 28/. Improving since going to [facility]. Goals Goal 1:: Return demo HEP mid row w, purple band, shd flexion 90-0 shd abduction 90-9, ext rot only 2x20 twice daily. Goal Progress: Goal Met Goal 2:: Improve ext rotation MMT 10% in 2-4 weeks Goal Progress: Goal Met Goal 3:: Scapular strengthening Goal Progress: Progressing Plan Plan: Discharge to HEP Discharge cross chest D/C Information Discharge Comments: Follow up with physician to see if a surgical candidate. Is traveling a lot the next couple of months. d/c sentence: If there are questions or concerns regarding this patient's physical therapy, please feel free to call me at [phone]. Thank you for the referral of this patient. Sincerely, Lele Martinez, PT, KATIA, SCS, CSCS Balance/Gait/Functional tests Balance/Special Test Scores Quick DASH Score: 32.5000 Improvement % Improvement: 85
--- NOTE | 2023-08-31 14:55 | HP.PTDCSUM_ITS ---
Discharge Summary D/C summary: It has been my pleasure to treat TELLY HARO referred by ANGEL MACK, with the diagnosis of R bicep and Supraspinatus RCT for a total of 15 visit(s). Discharge Date: 08/31/23 Please see the following information for a summary of their discharge status. Subjective Subjective: Nhan returns to the clinic after a month long trip to [facility]. Prior to leaving he felt about 80-85% better but has since regressed a little to about 70%. Its now affecting my adls such as raking blowing leaves or lifting a suitcase. I'm going to call the Dr to schedule a visit to see if I'm a surgical candidate. Pain Right Shoulder: Pain Intensity (Out of 10): 0 Heal: Pain Intensity (Out of 10): 0 Overall Improvement % Improvement: 85 Objective Objective/Function: Mild tenderness over bicipital groove ext. rotation R 32/49 L 28/. Improving since going to [facility]. Goals Goal 1:: Return demo HEP mid row w, purple band, shd flexion 90-0 shd abduction 90-9, ext rot only 2x20 twice daily. Goal Progress: Goal Met Goal 2:: Improve ext rotation MMT 10% in 2-4 weeks Goal Progress: Goal Met Goal 3:: Scapular strengthening Goal Progress: Progressing Plan Plan: Discharge to HEP Discharge cross chest D/C Information Discharge Comments: Follow up with physician to see if a surgical candidate. Is traveling a lot the next couple of months. d/c sentence: If there are questions or concerns regarding this patient's physical therapy, please feel free to call me at [phone]. Thank you for the referral of this patient. Sincerely, Lele Martinez, PT, KATIA, SCS, CSCS Balance/Gait/Functional tests Balance/Special Test Scores Quick DASH Score: 32.5000 Improvement % Improvement: 85
--- NOTE | 2023-08-31 14:55 | HP.PTDCSUM_ITS ---
Discharge Summary D/C summary: It has been my pleasure to treat TELLY HARO referred by ANGEL MACK, with the diagnosis of R bicep and Supraspinatus RCT for a total of 15 visit(s). Discharge Date: 08/31/23 Please see the following information for a summary of their discharge status. Subjective Subjective: Nhan returns to the clinic after a month long trip to [facility]. Prior to leaving he felt about 80-85% better but has since regressed a little to about 70%. Its now affecting my adls such as raking blowing leaves or lifting a suitcase. I'm going to call the Dr to schedule a visit to see if I'm a surgical candidate. Pain Right Shoulder: Pain Intensity (Out of 10): 0 Heal: Pain Intensity (Out of 10): 0 Overall Improvement % Improvement: 85 Objective Objective/Function: Mild tenderness over bicipital groove ext. rotation R 32/49 L 28/. Improving since going to [facility]. Goals Goal 1:: Return demo HEP mid row w, purple band, shd flexion 90-0 shd abduction 90-9, ext rot only 2x20 twice daily. Goal Progress: Goal Met Goal 2:: Improve ext rotation MMT 10% in 2-4 weeks Goal Progress: Goal Met Goal 3:: Scapular strengthening Goal Progress: Progressing Plan Plan: Discharge to HEP Discharge cross chest D/C Information Discharge Comments: Follow up with physician to see if a surgical candidate. Is traveling a lot the next couple of months. d/c sentence: If there are questions or concerns regarding this patient's physical therapy, please feel free to call me at [phone]. Thank you for the referral of this patient. Sincerely, Lele Martinez, PT, KATIA, SCS, CSCS Balance/Gait/Functional tests Balance/Special Test Scores Quick DASH Score: 32.5000 Improvement % Improvement: 85
== END 2023-08-31 19:00 | disposition home or self-care (01) ==
LOC: PT 14:00
PROVIDERS: PCP Family Medicine
DX: S46.011D Strain of muscle(s) and tendon(s) of the rotator cuff of right shoulder, subsequent encounter (principal)
CPT/HCPCS: 97035; 97110; 97161; 97164

== ENCOUNTER → 2024-02-23 | Outpatient (CLI) | payer MEDICARE, OTHER, SELFPAY ==
[2024-02-23 08:37] LABS: Absolute Neutrophil Count 2.3 X10^3/uL (2.0-7.7); Basophil# 0.07 X10^3/uL; Basophil% 1.6 % (0-1); Eosinophil# 0.21 X10^3/uL; Eosinophils% 4.8 % (0-5); Hematocrit 50.6 % (40-54); Hemoglobin 16.9 g/dL (13.0-16.5); Lymphocyte % 29.7 % (19-41); Mean Corp Hgb Conc 33.4 g/dL (32-36); Mean Corpuscular Hgb 32.3 pg (27.0-32.0); Mean Corpuscular Volume 96.7 fL (80-94); Mean Platelet Vol. 8.9 fl (6.2-12.0); Monocyte# 0.49 X10^3/uL; Monocyte% 11.2 % (0-10); NRBC Flagged by Analyzer 0 % (0-5); Neutrophil # 2.28 X10^3/uL (2.7-7.7); Neutrophil % 52.2 % (47-70); Platelet Count 274 K/mm3 (150-450); RBC Distribution Width CV 13.9 % (11.6-14.6); RBC Distribution Width SD 50.1 fl (35.1-43.9); Red Blood Count 5.23 M/mm3 (4.6-6.2); White Blood Count 4.4 K/mm3 (4.4-11.0)
[2024-02-23 09:41] LABS: ALB/GLOB Ratio 1.2 RATIO (0.9-2.4); AST(SGOT) 43 U/L (15-37); Alanine Aminotransfer ALT/SGPT 46 U/L (16-61); Albumin, Serum 3.9 g/dL (3.2-5.0); Alkaline Phosphatase 67 U/L (45-117); Anion Gap 8 (5-15); BUN 8 mg/dL (7-18); BUN/Creat Ratio 9.1 RATIO (10-20); Calcium,Total 9.6 mg/dL (8.5-10.1); Chloride 106 mmol/L (98-107); Cholesterol 162 mg/dL (200); Creatinine, Serum 0.88 mg/dL (0.70-1.30); EST Glomerular Filtration Rate 92 mL/min (>60); Est Glom Filt Rate - Afr Amer 111 mL/min (>60); Globulin 3.3 g/dL (2.2-4.2); Glucose 106 mg/dL (74-106); High Density Lipoprotein 56 mg/dL; PSA,Total- Diagnostic < 0.01 ng/mL (0.0-4.0); Potassium 3.8 mmol/L (3.5-5.1); Protein, Total 7.2 g/dL (6.4-8.2); Sodium Level 140 mmol/L (136-145); Triglycerides 60 mg/dL; Very Low Density Lipoprotein 12 mg/dL (5-40)
== END | disposition home or self-care (01) ==
LOC: LAB 07:37
PROVIDERS: PCP Nurse Practitioner Family; Visit Provider Nurse Practitioner Family
DX: I10 Essential (primary) hypertension (principal); E78.5 Hyperlipidemia, unspecified; Z85.46 Personal history of malignant neoplasm of prostate; D58.2 Other hemoglobinopathies
CPT/HCPCS: 36415; 80053; 80061; 84153; 85025

== ENCOUNTER 2024-07-13 10:30 | Outpatient (RCR) | payer MEDICARE, OTHER, SELFPAY ==
--- NOTE | 2024-03-06 15:11 | HP.PTEVAL_ITS ---
Patient's Visit Information Visit Information Visit Information: TELLY HARO is a 68 year old M referred to Physical Therapy by ANGEL MIRELES with a diagnosis of R Rotator Cuff Repair 4..24 w/bicep tenodesis, acriomioplasty. Date of Evaluation: 03/06/24 Physical Therapist: Lele Martinez, PT, KATIA, SCS, CSCS Visit Plan Frequency: 2x /Week Duration: 6 Weeks Plan: plan to see 2xweek for 2-4 weeks. He is scheduled to go to on March 16 for 2 weeks. 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 I m familiar with this patient as I treated him last year prior to his surgery. I was surprise by the extensive rotator cuff repair. He is scheduled to follow up with Dr Mireles on March 13. Pain Right Shoulder: Pain Intensity (Out of 10): 2 Pain Intensity Range: 1 and 7 Objective Objective: Incisions is well healed no drainage denies fever and chills. Patient said that he had a lot of bruising post surgery but has since resolved. PROM is 40 ext rotation, 90 abduction, FF 110, Int Rot not tested MMT deferred at this time. R hand dominant displayed a mounter brass wind instruments strength of 75 R 90 L Balance/Special Test Scores Quick DASH Score: 63.6350 Goals Goal 1:: Understand the healing process and reoair Goal Time Frame: 1 Week Goal 2:: Improve ROM by 20% Goal Time Frame: 2-4 Weeks Goal 3:: Progress thru Phase 1,2&3 Goal Time Frame: 12-16 Weeks Rehabilitation Potential Physical Therapy Diagnosis: Same Rehabilitation Potential: Good Anticipated Interventions Patient/Client Instruction: Educate patient on: Condition, Plan of Care and Benefits of Fitness Program For the Purpose of:: To decrease pain, To increase ROM, To improve ability to perform ADL's and To increase flexibility/ROM Therapeutic Exercise to Include: Strength training, Coordination, Agility training, Flexibilty training and Active ROM For the Purpose of:: To decrease pain, To increase ROM, To improve muscle performance and motor function and To increase flexibility/ROM Manual Therapy Techniques to Include: Massage, Mobilization and Passive ROM For the Purpose of:: To decrease pain, To decrease swelling/inflammation, To increase ROM and To increase flexibility/ROM Functional electric stimulation: Yes Cryotherapy (ice pack, ice massage): Yes For the Purpose of:: To decrease pain, To decrease swelling/inflammation, To increase ROM and To increase flexibility/ROM Text: Thank you for the opportunity to evaluate your patient. For Medicare and Medicare HMO plans, please review the plan of care and approve it. It will need to be FAXED BACK to us at [phone] for Medicare purposes. For Medicare only, by signing this I certify the plan of care. Please let me know if there are questions or concerns regarding this plan of care. Physician Signature: Date:
--- NOTE | 2024-07-13 11:14 | HP.PTDCSUM ---
Discharge Summary D/C summary: It has been my pleasure to treat TELLY HARO referred by ANGEL MACK, with the diagnosis of R Rotator Cuff Repair 01.27.24 w/bicep tenodesis, acriomioplasty for a total of 22 visit(s). Discharge Date: 07/13/24 Please see the following information for a summary of their discharge status. Subjective Subjective: I'm heading down tomorrow to Dr Flaherty is scheduled for surgery on Wednesday so will be helping with her recovery. Pain Right Shoulder: Pain Intensity (Out of 10): 0 Overall Improvement % Improvement: 90 Objective Objective/Function: R 33.8 ext 44 L 31.3 ext 35 Full ROM 175 + B int ext rot WNL No Significant difficulties with ADL's very active Goals Goal 1:: Understand the healing process and reoair Goal Progress: Goal Met Goal 2:: Improve ROM by 20% Goal Progress: Goal Met Goal 3:: Progress thru Phase 1,2&3 Goal Progress: Goal Met Plan Plan: discharge to [facility] plan D/C Information Discharge Comments: Progressing nicely if he has any needs we can address d/c sentence: If there are questions or concerns regarding this patient's physical therapy, please feel free to call me at [phone]. Thank you for the referral of this patient. Sincerely, Lele Martinez, PT, KATIA, SCS, CSCS Balance/Gait/Functional tests Balance/Special Test Scores Quick DASH Score: 13.6350 Improvement % Improvement: 90
== END 2024-07-13 19:00 | disposition home or self-care (01) ==
LOC: PT 10:30
PROVIDERS: PCP Nurse Practitioner Family
DX: Z98.890 Other specified postprocedural states (principal)
CPT/HCPCS: 97014; 97110; 97140; 97161; G0283

== ENCOUNTER → 2025-03-09 | Outpatient (CLI) | payer MEDICARE, OTHER, SELFPAY ==
[2025-03-09 12:25] LABS: Absolute Neutrophil Count 6.9 X10^3/uL (2.0-7.7); Basophil# 0.07 X10^3/uL; Basophil% 0.7 % (0-1); Eosinophil# 0.17 X10^3/uL; Eosinophils% 1.8 % (0-5); Hematocrit 50.9 % (40-54); Hemoglobin 17.4 g/dL (13.0-16.5); Lymphocyte % 16.9 % (19-41); Mean Corp Hgb Conc 34.2 g/dL (32-36); Mean Corpuscular Hgb 31.6 pg (27.0-32.0); Mean Corpuscular Volume 92.4 fL (80-94); Mean Platelet Vol. 9.4 fl (6.2-12.0); Monocyte% 7.4 % (0-10); NRBC Flagged by Analyzer 0 % (0-5); Neutrophil % 72.8 % (47-70); Platelet Count 365 K/mm3 (150-450); RBC Distribution Width CV 13.9 % (11.6-14.6); RBC Distribution Width SD 47.5 fl (35.1-43.9); Red Blood Count 5.51 M/mm3 (4.6-6.2); White Blood Count 9.5 K/mm3 (4.4-11.0)
[2025-03-09 13:07] LABS: ALB/GLOB Ratio 1.7 RATIO (0.9-2.4); AST(SGOT) 31 U/L (<=37); Alanine Aminotransfer ALT/SGPT 28 U/L (<=46); Albumin, Serum 4.8 g/dL (3.4-4.8); Alkaline Phosphatase 77 U/L (40-129); Anion Gap 17 (5-15); BUN 12 mg/dL (4-19); BUN/Creat Ratio 13.8 RATIO (10-20); Calcium,Total 10.4 mg/dL (7.6-11.0); Carbon Dioxide 20.7 mmol/L (21.0-32.0); Chloride 103 mmol/L (98-108); Cholesterol 205 mg/dL (<=200); Creatinine, Serum 0.83 mg/dL (0.70-1.20); EST Glomerular Filtration Rate 94 (>60); Globulin 2.8 g/dL (2.2-4.2); Glucose 113 mg/dL (70-99); High Density Lipoprotein 60 mg/dL; Low Density Lipoprotein Calc. 130 mg/dL; Potassium 4.1 mmol/L (3.3-5.1); Protein, Total 7.6 g/dL (5.9-8.4); Sodium Level 140 mmol/L (133-145); Total Bilirubin 0.79 mg/dL (0.00-1.30); Triglycerides 75 mg/dL; Very Low Density Lipoprotein 15 mg/dL (5-40); cholesterol:hdl ratio screen 3.43
[2025-03-09 13:10] LABS: PSA,Total- Diagnostic < 0.02 ng/mL (0.00-4.00); Vitamin B12 777 pg/mL (180-914)
[2025-03-09 13:40] LABS: FOLATES,SERUM (FOLIC ACID) > 40.00 ng/mL (4.60-34.80)
== END | disposition home or self-care (01) ==
LOC: MTLAB 09:26
PROVIDERS: PCP Nurse Practitioner Family; Referring Provider Nurse Practitioner Family; Visit Provider Nurse Practitioner Family
DX: I10 Essential (primary) hypertension (principal); G62.9 Polyneuropathy, unspecified; E78.5 Hyperlipidemia, unspecified
CPT/HCPCS: 36415; 80053; 80061; 82607; 82746; 84153; 85025

== ENCOUNTER → 2025-07-10 | Outpatient (CLI) | payer SELFPAY | END | disposition home or self-care (01) | PROVIDERS: PCP Nurse Practitioner Family; Referring Provider Nurse Practitioner Family; Visit Provider Nurse Practitioner Family | DX: E66.9 Obesity, unspecified (principal) | CPT/HCPCS: 76499 ==